=== PATIENT | female | born 1955 | race African-American/Black ===

== ENCOUNTER 2022-10-13 00:32 | Inpatient (IN) | payer MEDICARE, MEDICAID ==
[~2022-10-13] VITALS: Ht 162.6 cm; Wt 55.0 kg
[~2022-10-13 00:32] MED LIST: ALBUTEROL; HCTZ; LISINOPRIL; SEROQUEL; VICODIN
[2022-10-13 00:36] VITALS: O2SAT 84
[2022-10-13] MEDS ORDERED: FAMOTIDINE 20MG/2ML VIAL IV STA (00:54)
[2022-10-13] MEDS ORDERED: MORPHINE SULFATE 4 MG/ML CPJ (NOT FOR IM USE) IV STA (00:54)
[2022-10-13] MEDS ORDERED: ONDANSETRON HCL 4MG/2ML INJ IV STA (00:54)
[2022-10-13 01:38] LABS: CHLORIDE 105 mEq/L (98-107)
[2022-10-13 01:41] LABS: HEMATOCRIT. 31.1 % (36.0-48.0); HEMOGLOBIN. 10.1 g/dL (12.0-16.0); MEAN CORPUSCULAR HEMOGLOBIN 31.1 pg (28.0-32.0); MEAN CORPUSCULAR VOLUME 95.6 fL (81.0-99.0); MEAN PLATELET VOLUME 10.3 fl (7.4-10.4); PLATELET 324 x1000/uL (130-400); RED BLOOD CELL COUNT 3.26 mill/uL (4.2-5.4); RED CELL DISTRIBUTION WIDTH 15.3 % (11.6-14.6)
[2022-10-13 01:53] LABS: D-DIMER 9.1 mg/L FEU (<0.50); INR 0.9; PROTHROMBIN TIME 10.1 sec (9.6-11.0)
[2022-10-13] MEDS ORDERED: SODIUM CHLORIDE 0.9% 1,000 ML IV ONE ×2 (02:15→04:15)
[2022-10-13] MEDS ORDERED: PIPERACILLIN/TAZ 3.375G PREMIX 50 ML IV ONE (02:30)
[2022-10-13 04:40] LABS: NUCLEATED RED BLOOD CELLS 2 /100 WBC
[2022-10-13 04:41] LABS: PLATELET ESTIMATE NORMAL
[2022-10-13 06:28] VITALS: BP 184/99; PULSE 94; RESP 22; TEMP 97.9
== END 2022-10-13 09:13 | DRG 871 ==
LOC: ER 00:32 → EDBEDREQ 02:56 → MICUSO 03:38
PROVIDERS: ADMIT Internal Medicine; ATTEND Internal Medicine
PROC: 5A12012 Performance of Cardiac Output, Single, Manual (ICD-10-PCS; principal; 2022-10-13)
PROC: 0BH17EZ Insertion of Endotracheal Airway into Trachea, Via Natural or Artificial Opening (ICD-10-PCS; 2022-10-13)
DX: A41.9 Sepsis, unspecified organism (principal); G93.41 Metabolic encephalopathy; K85.90 Acute pancreatitis without necrosis or infection, unspecified; K57.31 Diverticulosis of large intestine without perforation or abscess with bleeding; E87.20 Acidosis, unspecified; K56.609 Unspecified intestinal obstruction, unspecified as to partial versus complete obstruction; N17.9 Acute kidney failure, unspecified; R18.8 Other ascites; E44.1 Mild protein-calorie malnutrition; D63.8 Anemia in other chronic diseases classified elsewhere; J45.909 Unspecified asthma, uncomplicated; I95.9 Hypotension, unspecified
CPT/HCPCS: 36415; 71045; 74176; 76700; 80053; 82962; 83605; 83880; 84484; 85025; 85379; 86850; 86900; 93005; 99291; J2270; J2405; J2543; J3490; J7030